=== PATIENT | female | born 1955 | race Caucasian/White ===

== ENCOUNTER 2024-10-23 14:00 | Outpatient (RCR) | payer MEDICARE, OTHER, BC, SELFPAY | END 2024-12-10 14:29 | disposition home or self-care (01) | PROVIDERS: PCP Family Medicine; Visit Provider Family Medicine | DX: M25.511 Pain in right shoulder (principal); M25.512 Pain in left shoulder; Z51.89 Encounter for other specified aftercare; G89.29 Other chronic pain; R53.1 Weakness | CPT/HCPCS: 97110; 97140; 97161 ==